=== PATIENT | female | born 1960 | race Caucasian/White ===

== ENCOUNTER 2020-11-04 02:33 | Inpatient (IN) | payer OTHER ==
[2020-11-04] MEDS ORDERED: ACETAMINOPHEN 1000 MG/100 ML VIAL (NON FORMULARY) IVPB ONE (02:43)
[2020-11-04] MEDS ORDERED: morphine CARPU-JECT 4 MG/1 ML DISP.SYRIN IVPUSH ONE (02:43)
[2020-11-04] MEDS ORDERED: ONDANSETRON 4 MG/2 ML VIAL IVPUSH ONE (02:43)
[2020-11-04] MEDS ORDERED: SODIUM CHLORIDE 0.9% 500 ML INFUS.BAG IV ONE (02:43)
[2020-11-04] MEDS ORDERED: FAMOTIDINE 20 MG/50 ML IVPB 20 MG/50 ML MG IVPB ONE ×2 (02:48→05:03)
[2020-11-04] MEDS ORDERED: ONDANSETRON 4 MG/2 ML VIAL ONE (02:51)
[2020-11-04] MEDS ORDERED: morphine SULFATE 4 MG/ML VIAL ONE (02:51)
[2020-11-04] MEDS ORDERED: ACETAMINOPHEN INJECTION 100 ML IVPB ONE (02:51)
[2020-11-04 02:58] LABS: BASO % 0.8 % (0-2.0); EOS % 0.3 % (0-4.5); HEMATOCRIT 42.9 % (32.4-45.2); HEMOGLOBIN 14.3 GM/dL (10.7-15.3); LYMPH % 22.6 % (8-40); MCHC 33.2 g/dl (32.0-36.0); MEAN CELL VOLUME 93.4 fl (80-96); MEAN PLT VOLUME 9.9 fl (7.5-11.1); MONO % 7.2 % (3.8-10.2); NEUT % 69.1 % (42.8-82.8); PLATELET COUNT 200 K/MM3 (134-434); RBC 4.59 M/mm3 (3.60-5.2); RDW 14.4 % (11.6-15.6); WHITE BLOOD COUNT 11.3 K/mm3 (4.0-10.0)
[2020-11-04 03:06] LABS: INR 0.96 (0.83-1.09); PROTHROMBIN TIME (PATIENT) 11.8 SEC (9.7-13.0)
[2020-11-04 03:09] LABS: ACTIVATED PTT 26.6 SECONDS (25.2-36.5)
[2020-11-04 03:20] LABS: POTASSIUM 4.1 mmol/L (3.5-5.1)
[2020-11-04 03:23] LABS: ALBUMIN 3.8 g/dl (3.4-5.0); BLOOD UREA NITROGEN 13.3 mg/dL (7-18); CALCIUM 9.2 mg/dL (8.5-10.1); MAGNESIUM 1.9 mg/dL (1.8-2.4)
[2020-11-04 03:26] LABS: CREATININE 0.6 mg/dL (0.55-1.3)
[2020-11-04 03:28] LABS: BILIRUBIN,TOTAL 0.8 mg/dL (0.2-1)
[2020-11-04] MEDS ORDERED: HYDROmorphone HCL CARPU-JECT 2 MG/1 ML DISP.SYRIN IVPUSH ONE (04:43)
[2020-11-04] MEDS ORDERED: HYDROmorphone HCl 2 MG/ML VIAL ONE (04:44)
[2020-11-04] MEDS ORDERED: SODIUM CHLORIDE 1,000 ML IV STA (04:48)
[2020-11-04 10:13] LABS: URINE APPEARANCE CLEAR; URINE BILIRUBIN NEGATIVE (NEGATIVE); URINE COLOR YELLOW; URINE GLUCOSE (UA) NEGATIVE (NEGATIVE); URINE KETONE NEGATIVE (NEGATIVE); URINE LEUK ESTERASE N (NEGATIVE); URINE NITRITE NEGATIVE (NEGATIVE); URINE PROTEIN NEGATIVE (NEGATIVE); URINE UROBILINOGEN 0.2 mg/dL (0.2-1.0)
[2020-11-04 10:14] LABS: EPI CELLS 8.4 /uL (0-25.1); HYALINE CASTS 0.38 /uL (0-3.1); URINE BACTERIA 23.8 /uL (0-1359); URINE WBC 65.1 /uL (0-25.8)
[2020-11-04] MEDS ORDERED: ONDANSETRON 4 MG/2 ML VIAL IVPUSH PRN (10:26)
[2020-11-04] MEDS ORDERED: HYDROmorphone HCl 2 MG/ML VIAL IVPUSH PRN (10:26)
[2020-11-04] MEDS ORDERED: D5-1/2NS+10 MEQ KCL - 10 MEQ/1,000 ML INFUS.BAG IV SCH (10:30)
[2020-11-04 12:28] VITALS: BP 120/63; PULSE 66; TEMP 97.5
[2020-11-04 16:34] LABS: BASO % 0.4 % (0-2.0); EOS % 2.6 % (0-4.5); HEMATOCRIT 39.3 % (32.4-45.2); HEMOGLOBIN 12.9 GM/dL (10.7-15.3); MCH 30.9 pg (25.7-33.7); MCHC 32.9 g/dl (32.0-36.0); MEAN CELL VOLUME 93.9 fl (80-96); MEAN PLT VOLUME 9.7 fl (7.5-11.1); MONO % 6.3 % (3.8-10.2); NEUT % 53.7 % (42.8-82.8); PLATELET COUNT 178 K/MM3 (134-434); RBC 4.19 M/mm3 (3.60-5.2); RDW 14.3 % (11.6-15.6); WHITE BLOOD COUNT 7.2 K/mm3 (4.0-10.0)
[2020-11-04] MEDS ORDERED: HYDROmorphone HCl 2 MG/ML VIAL IVPB PRN (16:36)
[2020-11-04] MEDS ORDERED: CEFTRIAXONE 1 GM in DEXTROSE 5%-WATER - 50 ML IVPB SCH (16:45)
[2020-11-04 16:55] LABS: POTASSIUM 3.8 mmol/L (3.5-5.1)
[2020-11-04 16:57] LABS: CALCIUM 8.2 mg/dL (8.5-10.1)
[2020-11-04 16:58] LABS: BLOOD UREA NITROGEN 6.6 mg/dL (7-18)
[2020-11-04 17:01] LABS: CREATININE 0.6 mg/dL (0.55-1.3)
[2020-11-04] MEDS ORDERED: FAMOTIDINE 20 MG/50 ML IVPB 20 MG/50 ML MG IVPB SCH (22:00)
== END 2020-11-04 17:38 | disposition left against medical advice (07) | DRG 247 ==
LOC: JER 02:33 → JERBED 06:00 → J6S 11:49
PROVIDERS: ADMIT Internal Medicine; ATTEND Internal Medicine
DX: K56.600 Partial intestinal obstruction, unspecified as to cause (principal); N39.0 Urinary tract infection, site not specified
CPT/HCPCS: 36415; 71045-TC-FY; 74176-TC; 74177-TC; 80048; 80053; 81003; 83605; 83690; 83735; 85025; 85610; 85730; 86850; 86900; 86901; 87086; 93005; 93010; 99285-25; C9803; J0131; Q9967; U0003

== ENCOUNTER 2021-05-04 10:06 | Emergency (ER) | payer OTHER ==
[2021-05-04 10:10] VITALS: BP 139/62; PULSE 97; TEMP 98.4; BMI 27.8
[2021-05-04] MEDS ORDERED: FLUTICASONE PROP 0.05% 16 GM NASAL SPRAY NS ONE (10:49)
[2021-05-04] MEDS ORDERED: KETOROLAC TROMETHAMINE 30 MG/1 ML VIAL IM ONE (10:49)
[2021-05-04] MEDS ORDERED: DEXAMETHASONE SOD PHOSPHATE 10 MG/1 ML VIAL IM ONE (10:49)
[2021-05-04] MEDS ORDERED: DEXAMETHASONE SOD PHOSPHATE 10 MG/1 ML VIAL ONE (10:51)
[2021-05-04] MEDS ORDERED: KETOROLAC TROMETHAMINE 30 MG/1 ML VIAL ONE (10:51)
== END 2021-05-04 11:39 | disposition home or self-care (01) ==
LOC: JERFT 10:06
PROC: 3E033NZ Introduction of Analgesics, Hypnotics, Sedatives into Peripheral Vein, Percutaneous Approach (ICD-10-PCS; principal; 2021-05-04)
PROC: 3E0233Z Introduction of Anti-inflammatory into Muscle, Percutaneous Approach (ICD-10-PCS; 2021-05-04)
DX: J06.9 Acute upper respiratory infection, unspecified (principal)
CPT/HCPCS: 87880; 99284-25; C9803; J1100; U0003; U0005